=== PATIENT | male | born 1970 | race Hispanic/Latino ===

== ENCOUNTER 2019-12-10 03:40 | Emergency (ER) | payer SELFPAY ==
[2019-12-10] MEDS ORDERED: Morphine 4 MG/ML VIAL ONE (03:59)
[2019-12-10] MEDS ORDERED: Ondansetron PF 4 MG/2 ML Vial ONE (03:59)
[2019-12-10 04:04] LABS: Bacteria/HPF None Seen HPF (None Seen); Bilirubin Negative (Negative); Blood, Urine Negative (Negative); Clarity Turbid (Clear); Glucose, Urine (Dipstick) Normal (Negative); Leukocyte Negative Leu/uL (Negative); Nitrite Negative (Negative); Protein, Urine (Dipstick) 50 mg/dL (Neg-Trace); RBC/HPF 0-3 HPF (0-3); Squamous Epithelial None Seen HPF (0-3); Urobilinogen Normal mg/dL (Less than 2); WBC/HPF 0-3 HPF (0-3)
[2019-12-10 04:23] LABS: #Eosinphils 0.3 thou/uL (0.0-0.7); #Lymphocytes 1.9 thou/uL (1.20-3.40); #Monocytes 0.8 thou/uL (0.11-0.59); #Neutrophils 7.2 thou/uL (1.40-6.50); %Basophils 0.4 % (0.0-1.0); %Eosinophils 2.5 % (0.0-10.0); %Lymphocytes 18.7 % (21.0-51.0); %Monocytes 7.9 % (0.0-10.0); %Neutrophils 70.6 % (42.0-75.0); Hemoglobin 11.6 g/dL (14.0-18.0); Mean Corpuscular HGB CONC 30.4 g/dL (32.0-36.0); Mean Corpuscular Hemoglobin 23.2 pg (27.0-31.0); Mean Corpuscular Volume 76.2 fL (78.0-98.0); Mean Platelet Volume 8.4 fL (7.4-10.4); Platelet Count 439 thou/uL (130-400); White Blood Cell (WBC) Count 10.1 thou/uL (4.8-10.8)
[2019-12-10 04:49] LABS: ALT (SGPT) 26 U/L (8-55); AST (SGOT) 24 U/L (5-34); Alkaline Phosphatase 123 U/L (40-110); Anion Gap 14 mmol/L (10-20); BUN (Urea Nitrogen) 13 mg/dL (8.9-20.6); Bilirubin, Total 0.5 mg/dL (0.2-1.2); Calc. Creatinine Clearance 0 mL/min (70-130); Calcium 9.7 mg/dL (7.8-10.44); Carbon Dioxide 24 mmol/L (22-29); Chloride 103 mmol/L (98-107); Estimated GFR-MDRD 77; Globulin 3.7 g/dL (2.4-3.5); Glucose 119 mg/dL (70-105); Lipase 21 U/L (8-78); Potassium 4.1 mmol/L (3.5-5.1); Protein, Total 8.7 g/dL (6.0-8.3); Sodium 137 mmol/L (136-145)
--- NOTE | 2019-12-10 07:51 | CT ---
PRELIMINARY REPORT/[facility]/EMERGENCY AFTER HOURS PROCEDURE: EXAM: CT Abdomen and Pelvis with Intravenous Contrast CLINICAL HISTORY: ER 2... M49 reports to the ED with abdominal pain that has been persisting for 2 da ys. Pt reports nausea, fever, cold. Pt denies medical problems. Pt states that he has pain all over abdomen. TECHNIQUE: Axial computed tomography images of the abdomen and pelvis with intravenous contrast. CONTRAST: With; ISOVUE 370, 90ML COMPARISON: None provided. FINDINGS: LUNG BASES: No basilar airspace consolidation or pleural effusion. LIVER: Unremarkable. GALLBLADDER AND BILE DUCTS: Unremarkable. No calcified stone. No ductal dilation. PANCREAS: Unremarkable. SPLEEN: Unremarkable. ADRENAL GLANDS: Unremarkable. KIDNEYS, URETERS, AND BLADDER: Unremarkable. No hydronephrosis or nephrolithiasis. No ureteral or demian dder calculi. STOMACH AND BOWEL: Stomach is distended with fluid. There is no coastal thickening involving the pylo luis and versus portion of duodenum. There is adjacent inflammation of fat. Best appreciated on coronal reformats is eccentric pocket of air along the pyloric wall. Differential should include ulce r and/or contained perforation. APPENDIX: Appendix is within normal limits. PERITONEUM: No free fluid. No free air. LYMPH NODES: No lymphadenopathy. REPRODUCTIVE: Unremarkable as visualized. VASCULATURE: No aortic aneurysm. BONES: No fracture or suspicious osseous abnormality. ABDOMINAL WALL AND SOFT TISSUES: Unremarkable. IMPRESSION: Mucosal thickening and edema involving the pylorus and first portion of duodenum secondar y to duodenitis. Associated pocket of air along the wall. Differential should include ulceration and/or contained perforation. Stomach is distended with fluid. Cannot exclude gastric out let obstruc tion. ELECTRONICALLY SIGNED BY: Sade Wilder MD Dec 10, 2019 5:51:01 AM LITIGATION MANAGER FINAL REPORT: CT ABDOMEN AND PELVIS WITH IV CONTRAST: FINAL REPORT: I agree with the report given by Dr. Sade Wilder of [facility]. There is thickening of the wa lls of the pylorus and first portion of the duodenum with associated pocket of air in or along the wall which could be due to contained perforation or ulceration. The stomach is distended with fluid. Gastric outlet obstruction should also be considered. Transcribed Date/Time: 12/10/2019 8:12 AM
[2019-12-10] MEDS ORDERED: Iopamidol-370 76% 500 ML 1 ML ONE (13:47)
--- NOTE | 2019-12-12 15:04 | EKG ---
Test Reason : ABDPAIN Blood Pressure : / mmHG Vent. Rate : 057 BPM Atrial Rate : 057 BPM P-R Int : 156 ms QRS Dur : 096 ms QT Int : 434 ms P-R-T Axes : 006 024 019 degrees QTc Int : 422 ms Sinus bradycardia Otherwise normal ECG Confirmed by IBIS CASILLAS ([id number]), field map editor LORENZO BANDA ([id number]) on 12/12/2019 3:04:19 PM Referred By: Confirmed By:IBIS CASILLAS
== END 2019-12-10 06:30 | disposition home or self-care (01) ==
LOC: ERS 03:40
DX: R10.13 Epigastric pain (principal)
CPT/HCPCS: 74177; 80053; 81003; 81015; 83690; 85025; 93005; 96361; 96374; 96375; J2270; J2405; Q9967